=== PATIENT | female | born 1990 | race Two or more races ===

== ENCOUNTER 2020-02-16 14:45 | Inpatient (IN) | payer OTHER ==
[~2020-02-16] VITALS: Ht 157.5 cm; Wt 2.3 kg
[2020-03-10] MEDS ORDERED: PRENATAL TABLE1 EAC1 PO (23:33)
[2020-03-10] MEDS ORDERED: PEPCID AC20 MG PO (23:33)
[2020-03-13] MEDS ORDERED: PERCOCET 5-3251 EACH PO ×2 (09:37→09:38)
[2020-03-13] MEDS ORDERED: KETO10TA2 PO (09:37)
== END 2020-03-13 16:11 | disposition home or self-care (01) | DRG 788 ==
LOC: OB/GYN 03-10 23:20 → LDR 03-10 23:20 → OB/GYN 03-11 13:14
PROVIDERS: ADMIT Obstetrics & Gynecology Maternal & Fetal Medicine; ATTEND Obstetrics & Gynecology Maternal & Fetal Medicine
PROC: 3E033VJ Introduction of Other Hormone into Peripheral Vein, Percutaneous Approach (ICD-10-PCS; 2020-03-11)
PROC: 4A1HXFZ Monitoring of Products of Conception, Cardiac Rhythm, External Approach (ICD-10-PCS; 2020-03-11)
PROC: 10D00Z1 Extraction of Products of Conception, Low, Open Approach (ICD-10-PCS; principal; 2020-03-11 10:00)
DX: O62.1 Secondary uterine inertia (principal); O61.0 Failed medical induction of labor; Z3A.39 39 weeks gestation of pregnancy; Z37.0 Single live birth; Z20.828 Contact with and (suspected) exposure to other viral communicable diseases

== ENCOUNTER 2020-03-05 14:33 | Outpatient (CLI) | payer OTHER | END 2020-03-05 17:03 | disposition home or self-care (01) | LOC: NST 14:33 | PROVIDERS: ATTEND Obstetrics & Gynecology Maternal & Fetal Medicine | DX: Z34.83 Encounter for supervision of other normal pregnancy, third trimester (principal) ==

== ENCOUNTER 2020-03-10 08:01 | Outpatient (CLI) | payer OTHER ==
[2020-03-10] MEDS ORDERED: PRENATAL TABLE1 EAC1 PO (23:33)
[2020-03-10] MEDS ORDERED: PEPCID AC20 MG PO (23:33)
== END 2020-03-10 12:24 | disposition home or self-care (01) ==
LOC: NST 08:01
PROVIDERS: ATTEND Obstetrics & Gynecology Maternal & Fetal Medicine
DX: Z34.83 Encounter for supervision of other normal pregnancy, third trimester (principal)